=== PATIENT | female | born 1975 | race Caucasian/White ===

== ENCOUNTER 2018-01-04 11:52 | Emergency (ER) | payer SELFPAY ==
--- NOTE | 2018-01-04 13:05 | RAD ---
THREE VIEWS LEFT HAND: DATE: 01/04/18. HISTORY: Left hand injury. The patient reports tingling sensation and swelling in the left wrist. FINDINGS: There is no evidence of a fracture, dislocation, or other osseous abnormality involving the left hand . There has been no interval change from the study on 04/07/17. IMPRESSION: No acute osseous abnormality. POS: [facility]
--- NOTE | 2018-01-04 13:07 | RAD ---
THREE VIEWS LEFT WRIST: DATE: 01/04/18. HISTORY: Tingling sensation and swelling in the left wrist. Injury to left wrist after a fall today. FINDINGS: There is a lucency within the distal aspect of the scaphoid bone likely related to interosseous gangl ion or subchondral cyst. There is no fracture, dislocation, or other osseous abnormality. There is mild subcutaneous soft tissue swelling seen dorsal to the wrist. IMPRESSION: Minimal subcutaneous soft tissue swelling, but no fracture is seen. If there is clinical concern for fracture of the navicular bone, followup views of the wrist are recommended in 4-7 days to exclude a radiographically occult fracture. POS: [facility]
--- NOTE | 2018-01-04 13:11 | RAD ---
TWO VIEWS LEFT FOREARM: DATE: 01/04/18. HISTORY: Left forearm and wrist injury after a fall today. The patient reports a tingling sensation and swell ing in the left wrist. FINDINGS: No fracture or dislocation is seen involving the left forearm. No other findings. IMPRESSION: No acute osseous abnormality of the forearm. POS: [facility]
== END 2018-01-04 13:10 | disposition home or self-care (01) ==
LOC: ERS 11:52
DX: S62.002A Unspecified fracture of navicular [scaphoid] bone of left wrist, initial encounter for closed fracture (principal); I10 Essential (primary) hypertension; M32.9 Systemic lupus erythematosus, unspecified; G40.909 Epilepsy, unspecified, not intractable, without status epilepticus; Z79.899 Other long term (current) drug therapy; Z87.891 Personal history of nicotine dependence; W10.9XXA Fall (on) (from) unspecified stairs and steps, initial encounter
CPT/HCPCS: 29125

== ENCOUNTER 2018-04-05 13:47 | Outpatient (CLI) | payer MEDICAID ==
--- NOTE | 2018-04-05 15:44 | MRI ---
MRI BRAIN WITH AND WITHOUT CONTRAST: Date: 04/05/18 INDICATION: Seizure disorder. No prior imaging comparisons. FINDINGS: The ventricular system is normal in size. There is no mass effect or midline shift. No significant si gnal abnormalities of brain parenchyma. There is no acute territorial infarction or evidence of intra cranial hemorrhagic susceptibility. The imaged skull base flow-voids are maintained. There is no path ologic intra-axial enhancement. No evidence of mesial temporal sclerosis/hippocampal atrophy. IMPRESSION: No acute intracranial abnormalities. POS: [facility]
== END 2018-04-05 13:48 | disposition home or self-care (01) ==
LOC: SCSMRI 13:47
PROVIDERS: ATTEND Emergency Medicine
DX: G40.909 Epilepsy, unspecified, not intractable, without status epilepticus (principal)
CPT/HCPCS: 70553

== ENCOUNTER 2019-06-25 12:08 | Emergency (ER) | payer SELFPAY ==
[~2019-06-25 12:08] MED LIST: ISOVUE-370 76%-LOCM 1 ML ONE
[2019-06-25] MEDS ORDERED: Ondansetron PF 4 MG/2 ML Vial ONE (14:02)
[2019-06-25] MEDS ORDERED: Morphine 4 MG/ML VIAL ONE (14:02)
[2019-06-25 14:13] LABS: #Basophils 0.1 thou/uL (0.0-0.2); #Eosinphils 0.1 thou/uL (0.0-0.7); #Lymphocytes 3.1 thou/uL (1.20-3.40); #Monocytes 0.6 thou/uL (0.11-0.59); #Neutrophils 5.8 thou/uL (1.40-6.50); %Basophils 0.8 % (0.0-1.0); %Eosinophils 0.5 % (0.0-10.0); %Lymphocytes 32.4 % (21.0-51.0); %Monocytes 5.8 % (0.0-10.0); %Neutrophils 60.6 % (42.0-75.0); Hemoglobin 14.3 g/dL (12.0-16.0); Mean Corpuscular HGB CONC 34.8 g/dL (32.0-36.0); Mean Corpuscular Hemoglobin 32.4 pg (27.0-31.0); Mean Corpuscular Volume 93.2 fL (78.0-98.0); Mean Platelet Volume 7.6 fL (7.4-10.4); Platelet Count 273 thou/uL (130-400); RBC Distribution Width 11.5 % (11.5-14.5); Red Blood Cell (RBC) Count 4.42 mill/uL (4.20-5.40); White Blood Cell (WBC) Count 9.6 thou/uL (4.8-10.8)
--- NOTE | 2019-06-25 14:15 | RAD ---
PORTABLE CHEST 1 VIEW: Date: 06/25/19 Time: 1347 hours HISTORY: Back pain radiating to the chest, chest pain. FINDINGS: The cardiomediastinum is normal. The lungs are expanded without focal areas of consolidation, pneumot horaces, or pleural effusions. IMPRESSION: No radiographic evidence of acute cardiopulmonary process. POS: [facility]
[2019-06-25 14:26] LABS: Bilirubin Negative (Negative); Blood, Urine Negative (Negative); Glucose, Urine (Dipstick) Negative (Negative); Leukocyte Negative (Negative); Nitrite Negative (Negative); Protein, Urine (Dipstick) Negative (Neg-Trace); Urobilinogen 0.2 mg/dL (Less than 2)
[2019-06-25 14:31] LABS: Clarity Clear (Clear)
[2019-06-25 14:34] LABS: ALT (SGPT) 21 U/L (8-55); AST (SGOT) 17 U/L (5-34); Albumin 4.5 g/dL (3.5-5.0); Alkaline Phosphatase 44 U/L (40-110); Anion Gap 14 mmol/L (10-20); BUN (Urea Nitrogen) 14 mg/dL (7.0-18.7); Bilirubin, Total 0.4 mg/dL (0.2-1.2); CK (CPK) 60 U/L (29-168); Calc. Creatinine Clearance 0 mL/min (70-130); Calcium 9.8 mg/dL (7.8-10.44); Carbon Dioxide 19 mmol/L (22-29); Chloride 108 mmol/L (98-107); Estimated GFR-MDRD 83; Globulin 2.8 g/dL (2.4-3.5); Glucose 93 mg/dL (70-105); Lipase 113 U/L (8-78); Potassium 3.5 mmol/L (3.5-5.1); Protein, Total 7.3 g/dL (6.0-8.3); Sodium 137 mmol/L (136-145)
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
--- NOTE | 2019-06-29 23:23 | EKG ---
Test Reason : Blood Pressure : / mmHG Vent. Rate : 064 BPM Atrial Rate : 064 BPM P-R Int : 134 ms QRS Dur : 074 ms QT Int : 402 ms P-R-T Axes : 067 069 047 degrees QTc Int : 414 ms Normal sinus rhythm Septal infarct , age undetermined Abnormal ECG Confirmed by ALLISON STONER DO ([id number]), editorial specialist ISHMAEL KEARNS ([id number]) on 06/29/2019 11:22:56 PM Referred By: Confirmed By:ALLISON STONER DO
== END 2019-06-25 16:32 | disposition home or self-care (01) ==
LOC: ERS 12:08
DX: M54.6 Pain in thoracic spine (principal); I10 Essential (primary) hypertension; Z87.891 Personal history of nicotine dependence
CPT/HCPCS: 36416; 71045; 71275; 72191; 74175; 80053; 81003; 82550; 83690; 84484; 85025; 93005; 96374; 96375; J2270; J2405; Q9966

== ENCOUNTER 2021-06-14 12:46 | Emergency (ER) | payer SELFPAY ==
[2021-06-14] MEDS ORDERED: HYDROcodone/Acetaminophen 10/325 mg Tablet ONE (13:46)
== END 2021-06-14 14:50 | disposition home or self-care (01) ==
LOC: ERS 12:46
DX: M25.511 Pain in right shoulder (principal); I10 Essential (primary) hypertension; Z87.891 Personal history of nicotine dependence; Z79.899 Other long term (current) drug therapy

== ENCOUNTER 2024-10-14 10:49 | Emergency (ER) | payer SELFPAY ==
[2024-10-14] MEDS ORDERED: Benzonatate 100 MG CAP ONE (12:19)
== END 2024-10-14 12:23 | disposition home or self-care (01) ==
LOC: ERS 10:49
DX: J06.9 Acute upper respiratory infection, unspecified (principal); I10 Essential (primary) hypertension; Z87.891 Personal history of nicotine dependence
CPT/HCPCS: 71045; 87428

== ENCOUNTER 2025-06-10 10:50 | Outpatient (CLI) | payer BC | END 2025-06-10 10:51 | disposition home or self-care (01) | LOC: BICRAD 10:50 | PROVIDERS: ATTEND Internal Medicine Rheumatology | DX: K50.919 Crohn's disease, unspecified, with unspecified complications (principal); M06.09 Rheumatoid arthritis without rheumatoid factor, multiple sites; M54.2 Cervicalgia; M54.50 Low back pain, unspecified; M43.8X6 Other specified deforming dorsopathies, lumbar region; M47.812 Spondylosis without myelopathy or radiculopathy, cervical region | CPT/HCPCS: 72040; 72100 ==